=== PATIENT | female | born 1985 | race Caucasian/White ===

== ENCOUNTER → 2021-01-11 16:33 | Outpatient (BNVA) | payer OTHER, SELFPAY | PROVIDERS: Family Provider Registered Nurse; PCP Registered Nurse; Visit Provider Nurse Practitioner Family | DX: Z20.822 Contact with and (suspected) exposure to COVID-19 (principal) | CPT/HCPCS: 87635 ==

== ENCOUNTER 2021-05-01 17:47 | Emergency (ER) | payer BC, SELFPAY ==
--- NOTE | 2021-05-01 17:54 | XRR_ITS ---
PROCEDURE INFORMATION: Exam: XR Left Foot Exam date and time: 05/01/2021 5:54 PM Age: 35 years old Clinical indication: Patient HX: Left foot pain; Additional info: Injury TECHNIQUE: Imaging protocol: XR Left foot. Views: 3 or more views. COMPARISON: No relevant prior studies available. FINDINGS: Bones/joints: There is a nondisplaced fracture of the neck of the 4th metatarsal. No additional acute fracture. No dislocation. Soft tissues: There is soft tissue edema. XR/XR foot LT min 3V* 21014 IMPRESSION: There is a nondisplaced fracture of the neck of the 4th metatarsal.
[2021-05-01 18:07] VITALS: BP 153/101; PULSE 75; RESP 18; TEMP 37.1; O2SAT 98; BMI 22.6
[2021-05-01 18:11] VITALS: PULSE 75
--- NOTE | 2021-05-01 18:24 | ED_ITS ---
HPI - Extremity Problem General: Chief complaint: Extremity Injury, Lower Stated complaint: Left foot injury Time Seen by Provider: 05/01/21 18:12 History of Present Illness: HPI Narrative: 35-year-old female comes in today for complaints of injury to the left foot. Patient reports she had tried on some new hills and was walking around the house syndrome when her son fell off the bed. Patient went to go into check on her son and she twisted her foot and ankle. Patient has pain to the metatarsal area around the fourth digit. Patient denies any chronic medical problems or concerns. Review of Systems General: Reports: 10 or more systems reviewed and unremarkable except in HPI and below Musc: Reports: other (Left foot injury.) [facility] ED PFSH: Family History Other CAD (coronary artery disease) Diabetes Social History Smoking and tobacco status: current every day smoker e-cigarettes Alcohol intake: unknown Adopted: Yes Caregiver/support person: No Household members: spouse Marital status: Current occupational status: employed Female Reproductive History: Date of last menstrual period: 04/28/21 Physical Exam Const: COMMON NORMALS: no acute distress and patient oriented x3 GENERAL APPEARANCE: cooperative HENMT: COMMON NORMALS: normocephalic HEAD & SCALP: normal to inspection and normocephalic Eye: GENERAL EYE: appearance normal, both eyes and all related structures Neck/C-Spine: COMMON NORMALS: full ROM Lymph: LYMPHATIC: no lymphadenopathy noted Chest: COMMONS NORMALS: normal inspection of the chest Resp: COMMON NORMALS: normal respiratory effort EFFORT & INSPECTION: Yes able to speak in complete sentences Cardio: COMMON NORMALS: regular rate and regular rhythm RATE: regular rate RHYTHM: regular rhythm GI: COMMON NORMALS: non-tender Extremity: NARRATIVE EXTREMITY EXAM: Ecchymosis and swelling is noted to the dorsal foot. Patient has increased tenderness of the distal fourth metatarsal area. Pulses are intact. No obvious swelling is noted to the ankle or other injury is noted. Neuro: COMMON NORMALS: patient oriented x3 and moves all extremities Psych: COMMON NORMALS: mental status grossly normal and cooperative Skin: COMMON NORMALS: no rashes or lesions noted GENERAL SKIN EXAM: no rashes or lesions noted Course Vital Signs: Vital signs: Vital Signs Temperature 98.7 F 05/01/21 18:07 Pulse Rate 75 05/01/21 18:07 Respiratory Rate 18 05/01/21 18:07 Blood Pressure 153/101 05/01/21 18:07 Pulse Oximetry 98 05/01/21 18:07 MDM - Extremity (Nontraumatic) MDM Narrative: Medical decision making narrative: Patient comes in today with injury to the left foot. On exam she has some ecchymosis and swelling with tenderness around the base of the fourth toe and distal fourth metatarsal. Remainder of the exam is unremarkable. Vital signs are normal. Differential diagnosis includes fracture, sprain, contusion. X-ray noted a nondisplaced fracture of the distal fourth metatarsal. Patient was splinted at a Iain wrap and postop shoe. Patient was put nonweightbearing with crutches. Review of the record indicated no recent narcotic prescriptions. Patient was written for 6 tablets of hydrocodone for breakthrough pain. Patient was encouraged to use ice, acetaminophen and ibuprofen for pain relief. Patient was recommended to follow-up with podiatry for further evaluation and treatment. Patient reported understanding of care plan need for return or new concerns. Discharge Plan Discharge Patient Disposition: Home Clinical Impression: Metatarsal bone fracture Qualifiers: Encounter type: initial encounter Metatarsal bone: fourth Fracture type: closed Fracture alignment: nondisplaced Laterality: left Qualified Code(s): S92.345A - Nondisplaced fracture of fourth metatarsal bone, left foot, initial encounter for closed fracture Condition: Stable Prescriptions: New hydrocodone-acetaminophen 5-325 mg tablet 1 tab PO Q8H PRN (Reason: pain (scale score 7-10)) Qty: 6 RF: 0 No Action potassium chloride 10 mEq capsule, extended release 10 meq PO TID RF: 0 sumatriptan succinate 50 mg tablet 50 mg PO Q2H PRNRF: 0 amitriptyline 25 mg tablet 25 mg PO DAILY RF: 0 Discharge Orders: Discharge ED (Routine); Ordered 05/01/21 Ordered By: Akshat Melendez Referrals: Melinda Castro FNP [Primary Care Provider] - Discharge Diet: Usual diet Discharge Activity: Increase activity as tolerated Patient Instructions: Foot Fracture in Adults (ED), Opioid Safety Activity Restrictions/Additional Instructions: Home and rest. Use crutches until he can walk comfortably on the foot. Wear good supportive shoe or the postop shoe for extra support of the bones in the foot. Use Iain wrap until swelling resolves. Follow-up with armhole sewer, foot ankle surgeon, for further evaluation and treatment. Return to the ER as needed for worsening symptoms or new concerns. Coding Level of Care Code ED Insurance Account Representative for [employer]
[2021-05-01 18:44] VITALS: BP 158/107; PULSE 75; RESP 18; O2SAT 97
--- NOTE | 2021-05-03 10:19 | DCPLANNER ---
qa manager had message to schedule a follow up appointment for patient with ortho. qa manager called the ortho clinic, spoke with Destiney, gave clinic patients information. qa manager was told that patients information would be printed and reviewed. Clinic will call patient with appointment information.
--- NOTE | 2021-05-04 07:54 | DCPLANNER ---
Patient has a follow up appointment scheduled for Friday, May 07, [address] at 9:[address] Rawls at [facility]. Clinic will call patient with appointment information.
--- NOTE | 2021-05-11 12:03 | DCPLANNER ---
Patient had a follow up appointment with ortho - patient did not attend appointment.
== END 2021-05-01 18:45 | disposition home or self-care (01) ==
PROVIDERS: Emergency Provider Nurse Practitioner Family; PCP Registered Nurse
DX: S92.345A Nondisplaced fracture of fourth metatarsal bone, left foot, initial encounter for closed fracture (principal); F17.290 Nicotine dependence, other tobacco product, uncomplicated; X50.1XXA Overexertion from prolonged static or awkward postures, initial encounter
CPT/HCPCS: 73630; 99283; E0114